=== PATIENT | female | born 1990 | race Caucasian/White ===

== ENCOUNTER 2019-10-06 11:07 | Emergency (ER) | payer MEDICAID ==
[~2019-10-06] VITALS: Ht 165.1 cm; Wt 45.5 kg
--- NOTE | 2019-10-06 11:15 | NUR ---
Pt. ambulated to bed 7
[2019-10-06 11:17] VITALS: BP 138/90
--- NOTE | 2019-10-06 11:23 | NUR ---
29 y/o f c/c dyspareunia since August 21, per pt experiences stomach cramps, sharp, 10/10 pain during and after sex. per pt has not had sexual intercourse for 5 years, denies burning or blood in the urine. pt nka. no hx. no rx. sx appendectomy. no n/v/d. side rail x1.
--- NOTE | 2019-10-06 11:23 | NUR ---
ermd at bedside
[2019-10-06 11:45] LABS: APPEARANCE,URINE CLEAR (CLEAR); BILIRUBIN,URINE 1+ (NEGATIVE); BLOOD, URINE 1+ (NEGATIVE); COLOR,URINE YELLOW (YELLOW); LEUKOCYTE ESTERASE ,URINE NEGATIVE (NEGATIVE); NITRITE, URINE NEGATIVE (NEGATIVE); UGLUCOSE NEGATIVE (NEGATIVE)
[2019-10-06 11:49] LABS: RBC,URINE 11-20 (MOD) /HPF (0-5); WBC,URINE 0-5 /HPF (0-5)
--- NOTE | 2019-10-06 12:05 | NUR ---
pt resting in bed, side rail x1
[2019-10-06 12:42] VITALS: BP 138/90
--- NOTE | 2019-10-06 12:42 | NUR ---
Patient discharged with v/s stable. Written and verbal after care instructions given and explained. Patient verbalized understanding. Ambulatory with steady gait. All questions addressed prior to discharge. Advised to follow up with PMD.
[2019-10-08 06:21] LABS: CHLAMYDIA TRACHOMATIS AMP DNA Negative (Negative)
== END 2019-10-06 12:42 | disposition home or self-care (01) ==
LOC: MED 11:07
DX: R10.2 Pelvic and perineal pain (principal); Z90.49 Acquired absence of other specified parts of digestive tract
CPT/HCPCS: 36415; 81001; 87491; 99283